=== PATIENT | female | born 1955 | race African-American/Black ===

== ENCOUNTER 2016-09-29 10:56 | Emergency (ER) | payer OTHER ==
[~2016-09-29] VITALS: Ht 172.7 cm; Wt 85.0 kg
[2016-09-29] MEDS ORDERED: CAMBIA50 MG PO (11:48)
[2016-09-29] MEDS ORDERED: MELOXICAM15 MG PO (11:48)
[2016-09-29] MEDS ORDERED: CITALOPRAM HBR20 MG PO (11:49)
[2016-09-29] MEDS ORDERED: CENTRUM SILVER1 EAC3 PO (11:49)
[2016-09-29] MEDS ORDERED: AMLODIPINE BESYL5 MG PO (11:49)
[2016-09-29] MEDS ORDERED: TRAMADOL HCL50 MG PO (13:46)
[2016-09-29] MEDS ORDERED: FLEXERIL10 MG PO (13:46)
[2016-09-29] MEDS ORDERED: PREDNISONE10 MG PO (13:46)
[2016-09-29 14:06] VITALS: BP 129/87
== END 2016-09-29 14:07 | disposition home or self-care (01) ==
LOC: EME 10:56
DX: M54.41 Lumbago with sciatica, right side (principal); M54.42 Lumbago with sciatica, left side; G89.29 Other chronic pain; E11.9 Type 2 diabetes mellitus without complications; I10 Essential (primary) hypertension
CPT/HCPCS: 99281; 99284; J3010; J7512

== ENCOUNTER 2016-11-30 06:11 | Inpatient (IN) | payer OTHER ==
[~2016-11-30] VITALS: Ht 172.7 cm; Wt 83.9 kg
[~2016-11-30 06:11] MED LIST: AMLODIPINE BESYL5 MG PO; CAMBIA50 MG PO; CENTRUM SILVER1 EAC3 PO; CITALOPRAM HBR20 MG PO; DULCOLAX10 MG PR; FLEXERIL10 MG PO; IBUPROFEN200 M1 PO; LOSARTAN POTASS50 MG PO; MELOXICAM15 MG PO; PREDNISONE10 MG PO; SENNA-DOCUSATE1 EAC1 PO; TRAMADOL HCL50 MG PO; TYLENOL EXTRA500 MG PO; VITAMIN C1000 MG PO
[2016-11-30 06:57] VITALS: BP 139/93
[2016-11-30 17:22] VITALS: BP 108/58
[2016-11-30 19:43] VITALS: BP 110/64
[2016-11-30 23:44] VITALS: BP 100/52
[2016-12-01 08:05] VITALS: BP 112/65
[2016-12-01] MEDS ORDERED: ADULT FOLDING1 EACH MC (08:57)
[2016-12-01 13:17] VITALS: BP 130/70
[2016-12-01 15:28] VITALS: BP 103/60
[2016-12-01 23:30] VITALS: BP 108/56
[2016-12-02 07:54] VITALS: BP 128/69
[2016-12-02] MEDS ORDERED: PERCOCET 5/31 TABLET PO (11:07)
== END 2016-12-02 12:32 | disposition home or self-care (01) | DRG 460 ==
LOC: 2SOUTH 06:11 → EDSTATUS 11:24 → SDC 11:24 → 2SOUTH 11:25 → 3EAST 16:27
DX: M43.17 Spondylolisthesis, lumbosacral region (principal); M48.06 Spinal stenosis, lumbar region; M54.16 Radiculopathy, lumbar region; K21.9 Gastro-esophageal reflux disease without esophagitis
CPT/HCPCS: 36415; 72100; 76000; 80048; 81003; 85025; 86850; 86900; 86901; C1713; J0690; J1100; J1170; J2250; J2405; J3010; J3370; J3480; J7030; S0020